=== PATIENT | female | born 2000 | race Two or more races ===

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

== ENCOUNTER 2024-06-12 03:35 | Emergency (ER) | payer MEDICAID ==
[~2024-06-12] VITALS: Ht 157.5 cm; Wt 53.3 kg
[2024-06-12 03:52] VITALS: BP 130/83; PULSE 130; RESP 16; TEMP 98; O2SAT 98
[2024-06-12 04:27] LABS: Urine Bacteria FEW /hpf (None Seen); Urine Blood 2+ /uL (Negative); Urine Clarity Turbid (Clear); Urine Color Yellow (Yellow); Urine Mucus FEW (None Seen); Urine Protein, UAD TRACE (Negative); Urine Specific Gravity 1.029 (1.001-1.035); Urine Urobilinogen Normal (Negative); Urine WBC 7 /hpf (0 - 5)
[2024-06-12 04:44] LABS: Rapid Influenza A Negative (Negative); Rapid Influenza B Negative (Negative)
[2024-06-12 04:44] LABS: COVID19 ANTIGEN SOFIA FIA NEGATIVE (NEGATIVE)
[2024-06-12] MEDS ORDERED: DOXY-286 PO (06:00)
== END 2024-06-12 06:03 | disposition home or self-care (01) ==
LOC: ER 03:35
DX: J02.9 Acute pharyngitis, unspecified (principal); Z20.822 Contact with and (suspected) exposure to COVID-19; Z88.1 Allergy status to other antibiotic agents
CPT/HCPCS: 36415; 81001; 87426; 87804